=== PATIENT | female | born 1990 | race Two or more races ===

== ENCOUNTER 2021-02-14 11:09 | Emergency (ER) | payer BC ==
--- NOTE | 2021-02-14 13:25 | EDM.PDOC ---
Scribed by Mitzi Schmitz 02/14/21 1325 for Saman Bloom MD ED HPI GENERAL MEDICAL PROBLEM - General Chief Complaint: General Stated Complaint: [id number] NO SENSE OF SMELL OR TASTE OF FOOD SOB Time Seen by Provider: 02/14/21 11:45 Source of Information: Reports: Patient, RN, RN Notes Reviewed History Limitations: Reports: No Limitations - History of Present Illness INITIAL COMMENTS - FREE TEXT/NARRATIVE: Patient presents to ED by POV here for COVID test because loss sense of taste and smell three days ago, No SOB, general fatigue. Onset: Gradual Duration: Constant Location: Reports: Generalized Severity: Moderate Improves with: Reports: None Worsens with: Reports: None Associated Symptoms: Reports: No Other Symptoms Generalized Pain Score (Numeric/FACES): 8 - Related Data Allergies Allergy/AdvReac Type Severity Reaction Status Date / Time No Known Allergies Allergy Verified 02/14/21 11:59 Home Meds: Home Meds . [No Known Home Meds] 02/14/21 [History] Past Medical History - Past Health History Medical/Surgical History: Denies Medical/Surgical History Social & Family History - Tobacco Use Tobacco Use Status *Q: Current Status Unknown - Caffeine Use Caffeine Use: Reports: Coffee - Recreational Drug Use Recreational Drug Use: No ED ROS GENERAL - Review of Systems Review Of Systems: Comprehensive ROS is negative, except as noted in HPI. ED EXAM, GENERAL - Physical Exam Exam: See Below Exam Limited By: No Limitations General Appearance: Alert, WD/WN, No Apparent Distress Eye Exam: Bilateral Eye: EOMI, Normal Inspection, PERRL Ears: Normal External Exam, Normal Canal, Hearing Grossly Normal, Normal TMs Nose: Normal Inspection, Normal Mucosa, No Blood Throat/Mouth: Normal Inspection, Normal Lips, Normal Teeth, Normal Gums, Normal Oropharynx, Normal Voice, No Airway Compromise Head: Atraumatic, Normocephalic Neck: Normal Inspection, Supple, Non-Tender, Full Range of Motion Respiratory/Chest: No Respiratory Distress, Lungs Clear, Normal Breath Sounds, No Accessory Muscle Use, Chest Non-Tender Cardiovascular: Normal Peripheral Pulses, Regular Rate, Rhythm, No Edema, No Gallop, No JVD, No Murmur, No Rub GI/Abdominal: Normal Bowel Sounds, Soft, Non-Tender, No Organomegaly, No Distention, No Abnormal Bruit, No Mass (Female) Exam: Deferred Rectal (Female) Exam: Deferred Back Exam: Normal Inspection, Full Range of Motion, NT Extremities: Normal Inspection, Normal Range of Motion, Non-Tender, Normal Capillary Refill, No Pedal Edema Neurological: Alert, Oriented, CN II-XII Intact, Normal Cognition, Normal Gait, Normal Reflexes, No Motor/Sensory Deficits Psychiatric: Normal Affect, Normal Mood Skin Exam: Warm, Dry, Intact, Normal Color, No Rash Course - Vital Signs Last Recorded V/S: Last Vital Signs Temp 97.7 F 02/14/21 11:57 Pulse 105 H 02/14/21 11:57 Resp 14 02/14/21 11:57 BP 101/65 02/14/21 11:57 Pulse Ox 100 02/14/21 11:57 - Orders/Labs/Meds Orders: Active Orders 24 hr Category Date Time Status Isolation [COMM] Routine Oth 02/14/21 11:47 Active Labs: Laboratory Tests 02/14/21 Range/Units 11:48 SARS-CoV-2 RNA ([facility]) Positive H (NEGATIVE) Influenza A and B: Negative. Departure - Departure Time of Disposition: 13:21 Disposition: Home, Self-Care 01 Condition: Good Clinical Impression: COVID-19 virus infection - Discharge Information *PRESCRIPTION DRUG MONITORING PROGRAM REVIEWED*: Not Applicable *COPY OF PRESCRIPTION DRUG MONITORING REPORT IN PATIENT FELY: Not Applicable Instructions: 10 Things You Can Do to Manage Your COVID-19 Symptoms at Home - [facility] (12/12/2019) Forms: ED Department Discharge Additional Instructions: Tylenol and/or Ibuprofen as needed for fevers or pain. Over the counter cough/cold medications as needed. Drink plenty of fluids and eat 3 meals a day even if you loose your appetite. Call 911 if you develop any difficulty breathing. Sepsis Event Note (ED) - Focused Exam Vital Signs: Vital Signs Temp Pulse Resp BP Pulse Ox 02/14/21 11:57 97.7 F 105 H 14 101/65 100 - My Orders Last 24 Hours: My Active Orders 02/14/21 11:47 Isolation [COMM] Routine - Assessment/Plan Last 24 Hours: My Active Orders 02/14/21 11:47 Isolation [COMM] Routine I have read and agree with the documentation that has been completed regarding this visit. By signing this record, I attest that the documentation was completed in my physical presence and is an accurate record of the encounter.
== END 2021-02-14 13:36 | disposition home or self-care (01) ==
LOC: DL.ED 11:09
DX: U07.1 COVID-19 (principal)
CPT/HCPCS: 87804; 99283; U0002

== ENCOUNTER 2022-07-20 04:32 | Inpatient (IN) | payer BC ==
[2022-07-20] MEDS: Lactated Ringers 1,000 ML IV SCH ×2 (04:53→05:35)
[2022-07-20] MEDS ORDERED: Penicillin G Potassium 5,000,000 Unit Vial ONE (04:54)
[2022-07-20] MEDS ORDERED: Dexmedetomidine 200 MCG/2 ML SDV ONE (05:02)
[2022-07-20] MEDS ORDERED: EPINEPHrine 1 MG/ML SDV ONE (05:02)
[2022-07-20] MEDS ORDERED: Ondansetron 4 MG/2 ML SDV ONE (05:03)
[2022-07-20] MEDS ORDERED: Penicillin G Potassium 5 MILLUNITS in Sodium Chloride 0.9% 100 ML IV ONE (05:05)
[2022-07-20] MEDS ORDERED: Naloxone 2 MG/2 ML Syringe IVPUSH PRN (05:09)
[2022-07-20] MEDS ORDERED: Lactated Ringers 1,000 ML IV ONE (05:09)
[2022-07-20] MEDS ORDERED: Lidocaine 1% 30 ML SDV INJECT PRN (05:09)
[2022-07-20] MEDS ORDERED: Sodium Chloride 0.9% 10 ML Syringe FLUSH PRN ×2 (05:09→10:05)
[2022-07-20] MEDS ORDERED: Promethazine 25 MG/ML SDV IM PRN (05:09)
[2022-07-20] MEDS ORDERED: Tranexamic Acid 1,000 MG in Sodium Chloride 0.9% 100 ML IV PRN ×2 (05:09→10:05)
[2022-07-20] MEDS ORDERED: ePHEDrine 50 MG/ML SDV IVPUSH PRN (05:09)
[2022-07-20] MEDS ORDERED: Carboprost Tromethamine 250 MCG/1 ML Amp IM PRN ×2 (05:09→10:05)
[2022-07-20] MEDS ORDERED: Acetaminophen 325 MG Tab PO PRN ×2 (05:09→10:05)
[2022-07-20] MEDS ORDERED: Methylergonovine 0.2 MG/1 ML Amp IM PRN (05:09)
[2022-07-20] MEDS ORDERED: Misoprostol 400 MCG (4 X 100 MCG TAB) RECTAL PRN ×2 (05:09→10:05)
[2022-07-20] MEDS ORDERED: Sodium Bicarbonate 4.2% 2.5 MEQ/5 ML SDV ONE (05:13)
[2022-07-20] MEDS ORDERED: Lactated Ringers 500 ML IV SCH ×2 (05:15)
[2022-07-20] MEDS ORDERED: Oxytocin/Normal Saline 30 UNIT/500 ML BAG IV SCH (05:15)
[2022-07-20] MEDS ORDERED: Ondansetron 4 MG/2 ML SDV IVPUSH ONE (05:15)
[2022-07-20] MEDS ORDERED: Penicillin G Potassium 3 MILLUNITS in Sodium Chloride 0.9% 100 ML IV SCH (09:00)
[2022-07-20] MEDS ORDERED: Simethicone 80 MG Tab.Chew PO PRN (10:05)
[2022-07-20] MEDS ORDERED: Benzocaine/Menthol 20%-0.5% Spray 78 GM Cannister TOP PRN (10:05)
[2022-07-20] MEDS ORDERED: Oxytocin 10 Units/1 ML SDV IM PRN (10:05)
[2022-07-20] MEDS ORDERED: Docusate Sodium 100 MG Cap PO PRN (10:05)
[2022-07-20] MEDS ORDERED: Witch Hazel Medicated Pads 100/Jar TOP PRN (11:33)
[2022-07-20] MEDS ORDERED: Famotidine 20 MG/2 ML SDV IVPUSH PRN (13:21)
[2022-07-20] MEDS: Ibuprofen 800 MG Tab PO PRN (17:01)
[2022-07-21] MEDS: Ibuprofen 800 MG Tab PO PRN (08:07)
[2022-07-21] MEDS ORDERED: Prenatal Multivitamin with Calcium/Folic Acid/Iron Tab PO SCH (09:00)
== END 2022-07-21 11:11 | disposition home or self-care (01) | DRG 560 ==
LOC: DL.OBCHECK 04:32 → DL.OB 05:09 → OBSVTOIN 09:37
PROVIDERS: ADMIT Family Medicine; ATTEND Family Medicine
PROC: 10D07Z6 Extraction of Products of Conception, Vacuum, Via Natural or Artificial Opening (ICD-10-PCS; principal; 2022-07-20)
PROC: 10907ZC Drainage of Amniotic Fluid, Therapeutic from Products of Conception, Via Natural or Artificial Opening (ICD-10-PCS; 2022-07-20)
DX: O48.0 Post-term pregnancy (principal); Z3A.40 40 weeks gestation of pregnancy; Z37.0 Single live birth; O99.824 Streptococcus B carrier state complicating childbirth; O99.02 Anemia complicating childbirth; O99.892 Other specified diseases and conditions complicating childbirth; O99.354 Diseases of the nervous system complicating childbirth; O69.81X0 Labor and delivery complicated by cord around neck, without compression, not applicable or unspecified; O66.0 Obstructed labor due to shoulder dystocia; D64.9 Anemia, unspecified; R73.03 Prediabetes; G43.909 Migraine, unspecified, not intractable, without status migrainosus; Z20.822 Contact with and (suspected) exposure to COVID-19
CPT/HCPCS: 01967; 36415; 51701; 59409; 85027; A9270-GY; J2405; J2540; J2590; J7050; J7120; U0002

== ENCOUNTER 2023-03-12 10:07 | Emergency (ER) | payer BC ==
[2023-03-12] MEDS ORDERED: Fluorescein 1 MG Ophth Strip EYELF ONE (10:21)
[2023-03-12] MEDS ORDERED: Proparacaine 0.5% Ophth Soln 15 ML Bottle EYELF ONE (10:55)
== END 2023-03-12 11:24 | disposition home or self-care (01) ==
LOC: DL.ED 10:07
DX: H10.32 Unspecified acute conjunctivitis, left eye (principal); B30.9 Viral conjunctivitis, unspecified
CPT/HCPCS: 99282; 99283; J3490